=== PATIENT | female | born 1965 | race Caucasian/White ===

== ENCOUNTER 2017-02-12 09:39 | Day surgery (SDC) | payer OTHER ==
[2017-02-11 13:46] VITALS: BMI 19.9
[2017-02-12] VITALS (11 sets, daily range): BP systolic 102–152; BP diastolic 57–74; PULSE 66–92; RESP 11–28; Ht 157.5 cm; Wt 54.0 kg
[~2017-02-12] VITALS: Ht 157.5 cm; Wt 54.0 kg
[~2017-02-12 09:39] MED LIST: CEFAZOLIN 2 GM/50 ML (PMX) 50 ML IVPB ONE; SOD CHLORIDE 0.9% 1,000 ML IV SCH
--- NOTE | 2017-02-12 10:45 | RADRPT ---
PROCEDURE: Chest Radiograph. CLINICAL INDICATION: Preop TECHNIQUE: Single frontal chest radiograph. COMPARISON: None available FINDINGS: The cardiomediastinal silhouette is within normal limits. The lungs are mildly hyperinflated. No in filtrate or effusion is seen. The bones are intact. IMPRESSION: 1. Mild pulmonary hyperinflation. 2. No evidence of acute cardiopulmonary disease. RPTAT: KK .Lisandro Rebollar MD, MD Date Time Electronically viewed and signed by .Lisandro Rebollar MD, MD on 02/12/2017 10:45 .B/
[2017-02-12] MEDS ORDERED: FENTAnyl 50 MCG/ML VIAL ONE (11:30)
[2017-02-12] MEDS ORDERED: MIDAZOLAM 1 MG/ML 2 ML INJ ONE (11:30)
[2017-02-12] MEDS ORDERED: PROPOFOL 20 ML ONE (11:30)
[2017-02-12] MEDS ORDERED: LIDOCAINE 1% (MDV) 20 ML INJ ONE (11:31)
[2017-02-12] MEDS ORDERED: ROPIVACAINE 0.2% 20 ML VIAL ONE (11:31)
[2017-02-12] MEDS ORDERED: POLYMYXIN/BACITRACIN 1L IRRIG ONE (11:39)
[2017-02-12] MEDS ORDERED: BUPIVACAINE 0.25% (MPF) 30 ML INJ ONE (11:39)
[2017-02-12] MEDS ORDERED: CEFAZOLIN 1 GM INJ ONE (11:44)
[2017-02-12] MEDS ORDERED: ONDANSETRON 4 MG INJ ONE (11:48)
[2017-02-12] MEDS ORDERED: DEXAMETHASONE 4 MG/ML 1 ML INJ ONE (11:48)
[2017-02-12] MEDS ORDERED: FAMOTIDINE 20 MG INJ ONE (11:48)
--- NOTE | 2017-02-12 12:19 | OPR ---
Date/Time of Note Date/Time of Note DATE: 02/12/17 TIME: 12:19 Operative Report Procedure Date: February 12, 2017 Preoperative Diagnosis RIH Postoperative Diagnosis same Operation Performed open incarcerated right inguinal hernia repair with mesh implantation of mesh right ilioinguinal nerve block Surgeon: Raymond ARTIS Anesthesia: general Raymond ARTIS February 12, 2017 12:19
[2017-02-12] MEDS ORDERED: HYDROCODONE/APAP (5/325) TAB PO ONE (12:30)
--- NOTE | 2017-02-12 12:43 | OPR ---
DATE OF OPERATION: 02/12/2017 INDICATION: This is a 51-year-old female with a right inguinal hernia that is incarcerated. She re quests surgical repair. The risks, alternatives, benefits, and personnel were discussed with the clinton perez. The patient expressed understanding and consented to the operation. PREOPERATIVE DIAGNOSIS: Right inguinal hernia. POSTOPERATIVE DIAGNOSIS: Incarcerated right inguinal hernia. OPERATION PERFORMED: 1. Open incarcerated right inguinal hernia [place] [address]. 2. Im[place] [address]. 3. Right ilioinguinal [place] [address]. SURGEON: Rupa Carney MD SPECIMEN: None. COMPLICATIONS: None. ANESTHESIA: General. DESCRIPTION OF PROCEDURE: The patient was taken to the OR and prepped and draped in the usual steri le fashion. A surgical timeout was performed. IV antibiotics were given. A right inguinal oblique incision was made with a 10 blade. Dissection cautery was carried down to the external oblique fas anastacio which was opened with a 15 blade. This incision was extended medial inferiorly and lateral supe riorly with Metzenbaum scissors. A large incarcerated direct hernia was identified, which was reduc ed manually. The disk portion of the UltraPro hernia system mesh was placed in the direct hernia spa ce and sutured down with running 0 Prolene from the pubic tubercle, along the shelving edge of the i nguinal ligament, and to the internal oblique with interrupted 3-0 Vicryl superiorly. [place] mesh wa s secured in a similar fashion from the pubic tubercle, along the shelving of the inguinal ligament with running 0 Prolene, superiorly to the internal oblique. This was secured with interrupted 3-0 Vicryl. The external oblique fascia was closed with running 3-0 Vicryl. Shoshana's was closed with i nterrupted 3-0 Vicryl. The skin was closed using skin david. Local anesthesia was injected along the incision line. Additionally, a right ilioinguinal block was performed by identifying the ASIS and the site 2 cm medial and 2 cm inferior, and a right inguinal nerve block was placed in a fanning motion. There was good hemostasis. Dry dressings were applied. Dictated By: RUPA CARNEY MD SB/ALESSIO Conf#: [id number] [facility]#: [id number]
--- NOTE | 2017-02-12 18:20 | RADRPT ---
Vent Rate: 82 bpm RR Interval: 0 msec PA Interval: 88 msec QRS Duration: 86 msec QT Interval: 394 msec QTC Interval: 460 msec P-R-T [place]: 39 - 76 - 81 degrees Sinus rhythm with short PA Prolonged QT Abnormal ECG Electronically Signed By: Melchor Gonzalez [id number]
== END 2017-02-12 14:10 | disposition home or self-care (01) ==
LOC: SDS 09:39
PROVIDERS: ATTEND Surgery
DX: K40.30 Unilateral inguinal hernia, with obstruction, without gangrene, not specified as recurrent (principal)
CPT/HCPCS: 49507; 71010; 93005; C1781; J0690; J1100; J2250; J2405; J2795; J3010; Z7512; Z7610